=== PATIENT | male | born 2000 | race Caucasian/White ===

== ENCOUNTER 2021-07-29 03:45 | Emergency (ER) | payer SELFPAY ==
[~2021-07-29] VITALS: Ht 185.4 cm; Wt 86.2 kg
--- NOTE | 2021-07-29 03:48 | NUR ---
PT [facility]. TAKEN TO BED 2
[2021-07-29] MEDS ORDERED: NACL 0.9% 1,000 ML IV ONE (03:50)
[2021-07-29] MEDS ORDERED: ONDANSETRON 4 MG/2 ML VIAL IVP ONE (03:50)
[2021-07-29 03:55] VITALS: BP 127/69
--- NOTE | 2021-07-29 03:55 | NUR ---
20 Y/O MALE BIBA, C/O N/V X4 HOURS. PT STATES HE HAD SOME DIARRHEA. CONFIRMS N/V/D; SKIN IS PINK/WARM/DRY; AAOX4 WITH EVEN AND STEADY GAIT; LUNGS CLEAR BL; HR EVEN AND REGULAR; PT DENIES ANY FEVER, CP, SOB, OR COUGH AT THIS TIME; PATIENT STATES ABDOMINAL PAIN OF 4/10 AT THIS TIME; VSS; PATIENT POSITIONED FOR COMFORT; HOB ELEVATED; BEDRAILS UP X2; BED DOWN. ER MD MADE AWARE OF PT STATUS. NO PMH NKA
[2021-07-29] MEDS ORDERED: ONDA-188 SL (04:24)
[2021-07-29 04:57] VITALS: BP 128/72
--- NOTE | 2021-07-29 04:58 | NUR ---
Patient discharged with v/s stable. Written and verbal after care instructions given and explained. Patient verbalized understanding. Ambulatory with steady gait. All questions addressed prior to discharge. Advised to follow up with PMD.
--- NOTE | 2021-07-30 12:00 | NUR ---
LATE ENTRY- IV NORMAL SALINE DISCONTINUED AT 0458.
== END 2021-07-29 04:58 | disposition home or self-care (01) ==
LOC: MED 03:45
DX: R11.2 Nausea with vomiting, unspecified (principal); R43.9 Unspecified disturbances of smell and taste; Z20.822 Contact with and (suspected) exposure to COVID-19
CPT/HCPCS: 87426; 96361; 96374; 99283; J2405; J7030